=== PATIENT | female | born 1940 | race Caucasian/White ===

== ENCOUNTER 2025-04-19 08:05 | Emergency (ER) | payer MEDICARE, BC ==
[2025-04-19 08:33] LABS: BASOPHILS ABSOLUTE AUTO 0.07 K/uL (0.00-0.20); BASOPHILS PERCENT AUTO 0.8 % (0.0-2.0); EOSINOPHILS ABSOLUTE AUTO 0.02 K/uL (0.00-0.50); EOSINOPHILS PERCENT AUTO 0.2 % (0.0-5.0); IMMATURE GRAN ABSOLUTE AUTO 0.05 10^3/uL (0.00-0.04); IMMATURE GRAN PERCENT AUTO 0.6 % (0.0-0.4); LYMPHOCYTES ABSOLUTE AUTO 1.23 K/uL (0.50-3.50); LYMPHOCYTES PERCENT AUTO 14.6 % (10.0-50.0); MONOCYTES ABSOLUTE AUTO 1.00 K/uL (0.00-1.00); MONOCYTES PERCENT AUTO 11.9 % (2.0-14.0); NEUTROPHILS ABSOLUTE AUTO 6.03 K/uL (1.40-7.00); NEUTROPHILS PERCENT AUTO 71.9 % (45.0-80.0); PLATELET COUNT,PLT 178 K/uL (150-350); RED BLOOD CELL COUNT 1.71 M/uL (3.77-5.09); RED CELL DISTRIBUTION WIDTH 16.7 % (11.2-14.1); WHITE BLOOD CELL COUNT,WBC 8.4 K/uL (4.0-10.2)
[2025-04-19 08:51] LABS: ALANINE AMINOTRANSFERASE,ALT 3 U/L (12-78); ASPARTATE AMNIOTRANSFERASE,AST 14 U/L (15-37); BILIRUBIN TOTAL 0.2 mg/dL (0.2-1.0); CARBON DIOXIDE,CO2 28.2 mmol/L (21.0-32.0); CHLORIDE,CL 102 mmol/L (98-107); GLUCOSE RANDOM 151 mg/dL (70-99); PRO B-TYPE NATRIUR PEPT,BNPPRO 31994 pg/mL (0-125); PROTEIN TOTAL,TP 5.2 g/dL (6.4-8.2); SODIUM,NA 138 mmol/L (136-145)
[2025-04-19 08:52] LABS: BLOOD UREA NITROGEN,BUN 141 mg/dL (7-18); CREATININE 5.23 mg/dL (0.51-1.17); ESTIMATED GFR 8 mL/min (>=60); POTASSIUM,K 5.9 mmol/L (3.5-5.1)
[2025-04-19 08:55] LABS: INR 1.3 (0.9-1.1); PTT,PARTIAL THROMBOPLSTIN TIME 23.6 SEC (23.8-34.4)
[2025-04-19] MEDS ORDERED: Naloxone 0.4 MG/ML SDV IVPUSH PRN (09:03)
[2025-04-19] MEDS: fentaNYL 50 MCG/ML SDV IVPUSH ONE ×3 (09:06→11:47)
[2025-04-19] MEDS: Diltiazem 25 MG/5 ML SDV IVPUSH ONE (09:29)
[2025-04-19 10:39] LABS: LACTIC ACID 11.4 mmol/L (0.4-2.0)
[2025-04-19] MEDS: Sodium Chloride 0.9% 10 ML Syringe FLUSH PRN (11:23)
[2025-04-19] MEDS: fentaNYL 50 MCG/ML SDV ONE (11:58)
[2025-04-19 13:15] VITALS: PULSE 97
[2025-04-19 13:16] VITALS: BP 87/32
== END 2025-04-19 12:25 ==
LOC: LL.ED 08:05
DX: I13.2 Hypertensive heart and chronic kidney disease with heart failure and with stage 5 chronic kidney disease, or end stage renal disease (principal); I50.32 Chronic diastolic (congestive) heart failure; N18.6 End stage renal disease; D63.1 Anemia in chronic kidney disease; E78.5 Hyperlipidemia, unspecified; I35.0 Nonrheumatic aortic (valve) stenosis; E11.22 Type 2 diabetes mellitus with diabetic chronic kidney disease; E11.65 Type 2 diabetes mellitus with hyperglycemia; I48.91 Unspecified atrial fibrillation; J44.9 Chronic obstructive pulmonary disease, unspecified; Z99.2 Dependence on renal dialysis; Z88.8 Allergy status to other drugs, medicaments and biological substances; Z79.899 Other long term (current) drug therapy; Z79.82 Long term (current) use of aspirin; Z86.16 Personal history of COVID-19; W07.XXXA Fall from chair, initial encounter; Y93.89 Activity, other specified; J32.0 Chronic maxillary sinusitis
CPT/HCPCS: 36415; 36430; 70450; 72170; 80053; 83605; 83880; 84484; 85025; 85610; 85730; 86850; 86900; 86901; 86920; 86922; 87040; 87426-QW; 93005; 93010; 96361; 96374; 96375; 96376; 99284; 99285-25; J0696; J2470; J3010; J3490; J7030; P9016

== ENCOUNTER 2025-04-29 10:32 | Emergency (ER) | payer MEDICARE, BC ==
[2025-04-29] MEDS ORDERED: Sodium Chloride 0.9% 10 ML Syringe FLUSH PRN (10:33)
[2025-04-29 11:04] LABS: BASOPHILS ABSOLUTE AUTO 0.10 K/uL (0.00-0.20); BASOPHILS PERCENT AUTO 1.1 % (0.0-2.0); EOSINOPHILS ABSOLUTE AUTO 0.07 K/uL (0.00-0.50); EOSINOPHILS PERCENT AUTO 0.8 % (0.0-5.0); IMMATURE GRAN ABSOLUTE AUTO 0.06 10^3/uL (0.00-0.04); IMMATURE GRAN PERCENT AUTO 0.7 % (0.0-0.4); LYMPHOCYTES ABSOLUTE AUTO 1.41 K/uL (0.50-3.50); LYMPHOCYTES PERCENT AUTO 15.3 % (10.0-50.0); MONOCYTES ABSOLUTE AUTO 0.75 K/uL (0.00-1.00); MONOCYTES PERCENT AUTO 8.2 % (2.0-14.0); NEUTROPHILS ABSOLUTE AUTO 6.80 K/uL (1.40-7.00); NEUTROPHILS PERCENT AUTO 73.9 % (45.0-80.0); PLATELET COUNT,PLT 134 K/uL (150-350); RED BLOOD CELL COUNT 1.83 M/uL (3.77-5.09); RED CELL DISTRIBUTION WIDTH 18.8 % (11.2-14.1); WHITE BLOOD CELL COUNT,WBC 9.2 K/uL (4.0-10.2)
[2025-04-29 11:18] LABS: ALANINE AMINOTRANSFERASE,ALT 5 U/L (12-78); ASPARTATE AMNIOTRANSFERASE,AST 19 U/L (15-37); BILIRUBIN TOTAL 0.3 mg/dL (0.2-1.0); CARBON DIOXIDE,CO2 29.5 mmol/L (21.0-32.0); CHLORIDE,CL 101 mmol/L (98-107); GLUCOSE RANDOM 180 mg/dL (70-99); POTASSIUM,K 5.2 mmol/L (3.5-5.1); PROTEIN TOTAL,TP 5.4 g/dL (6.4-8.2); SODIUM,NA 139 mmol/L (136-145)
[2025-04-29 11:21] LABS: BLOOD UREA NITROGEN,BUN 98 mg/dL (7-18); CREATININE 3.87 mg/dL (0.51-1.17); ESTIMATED GFR 11 mL/min (>=60)
[2025-04-29 12:43] LABS: INR 1.3 (0.9-1.1)
[2025-04-29 13:52] VITALS: PULSE 104
[2025-04-29 13:54] VITALS: BP 100/53
== END 2025-04-29 14:40 ==
LOC: LL.ED 10:32
DX: K92.2 Gastrointestinal hemorrhage, unspecified (principal); I11.0 Hypertensive heart disease with heart failure; I50.9 Heart failure, unspecified; I48.91 Unspecified atrial fibrillation; J44.9 Chronic obstructive pulmonary disease, unspecified; E11.9 Type 2 diabetes mellitus without complications; Z86.73 Personal history of transient ischemic attack (TIA), and cerebral infarction without residual deficits; Z88.8 Allergy status to other drugs, medicaments and biological substances; Z88.1 Allergy status to other antibiotic agents; Z79.82 Long term (current) use of aspirin; Z79.899 Other long term (current) drug therapy
CPT/HCPCS: 36415; 36430; 80053; 80162; 83605; 85025; 85610; 86850; 86900; 86901; 86920; 86922; 96361; 96374; 99284; J2470; J7030; J7050; P9016